=== PATIENT | female | born 1955 | race Caucasian/White ===

== ENCOUNTER 2017-01-04 12:37 | Inpatient (IN) | payer MEDICARE ==
[~2017-01-04] VITALS: Ht 162.6 cm; Wt 46.7 kg
--- NOTE | 2017-01-04 12:52 | NUR ---
DR MORGAN AT THE BEDSIDE FOR EVAL AND EXAM.
[2017-01-04] MEDS ORDERED: TIZA4TAB4 PO (12:53)
[2017-01-04] MEDS ORDERED: CELE200C PO (12:53)
[2017-01-04] MEDS ORDERED: LISI2.5T2 PO (12:53)
[2017-01-04] MEDS ORDERED: HYDR-3326 PO (12:53)
[2017-01-04] MEDS ORDERED: LEVO100T PO (12:53)
[2017-01-04] MEDS ORDERED: ONDANSETRON 4 MG/2 ML VIAL IV ONE (13:15)
[2017-01-04] MEDS ORDERED: IV NORMAL SALINE 1000 ML BAG IV ONE (13:15)
[2017-01-04] MEDS ORDERED: ONDANSETRON 4 MG/2 ML VIAL ONE (13:22)
[2017-01-04] MEDS ORDERED: IV NORMAL SALINE 0 ML IV ONE (13:33)
[2017-01-04] MEDS ORDERED: NORMAL SALINE FLUSH 10 ML DISP.SYRIN ONE (13:33)
[2017-01-04] MEDS ORDERED: IOHEXOL 300MG/ML 100 ML INFUS..BTL ONE (13:33)
[2017-01-04 14:34] LABS: CALCIUM 9.7 mg/dL (8.5-10.1); CREATININE 1.3 mg/dL (0.6-1.3); POTASSIUM 4.7 mmol/L (3.5-5.1)
[2017-01-04 14:38] LABS: BASOPHILS % (AUTO) 0.4 % (0.0-2.0); EOSINOPHILS # (AUTO) 0.1 K/uL (0.0-0.7); HEMATOCRIT 40.4 % (37-47); HEMOGLOBIN 13.6 G/DL (12.0-16.0); LYMPHOCYTES # (AUTO) 1.3 K/UL (0.8-4.8); LYMPHOCYTES % (AUTO) 18.4 % (20.5-51.5); MEAN CORPUSCULAR HEMOGLOBIN 31.3 UUG (27.0-31.0); MEAN CORPUSCULAR HGB CONC 34 g/dL (32.0-37.0); MEAN CORPUSCULAR VOLUME 93.3 FL (81.0-99.0); MONOCYTES # (AUTO) 0.3 K/UL (0.1-1.30); MONOCYTES % (AUTO) 4.6 % (0.0-11.0); NEUTROPHILS # (AUTO) 5.4 K/UL (1.8-8.9); NEUTROPHILS % (AUTO) 75.6 % (38.5-71.5); PLATELET COUNT (AUTO) 145 K/UL (150-450); RED BLOOD CELL COUNT(AUTO) 4.34 MIL/UL (4.2-5.4); RED CELL DISTRIBUTION WIDTH 12.3 % (11.5-14.5); WHITE BLOOD COUNT (AUTO) 7.1 K/UL (4.0-11.2)
[2017-01-04 14:41] LABS: ALBUMIN 4.5 g/dL (3.4-5.0); BILIRUBIN,DIRECT 0.1 mg/dL (0.0-0.2); BILIRUBIN,TOTAL 0.6 mg/dL (0.2-1.0); TOTAL PROTEIN, SERUM 7.5 g/dL (6.4-8.2)
--- NOTE | 2017-01-04 15:16 | NUR ---
PT BACK FROM CT. DENIES NAUSEA.
[2017-01-04] MEDS ORDERED: MORPHINE SULFATE 2 MG/1 ML DISP.SYRIN IV ONE (15:30)
[2017-01-04] MEDS ORDERED: MORPHINE SULFATE 2 MG/1 ML DISP.SYRIN ONE (15:44)
--- NOTE | 2017-01-04 15:55 | NUR ---
AGUSTÍN CHASE SPOKE TO PATRIZIA(PT'S PMD).
--- NOTE | 2017-01-04 16:20 | NUR ---
PATIENT ARRIVED FROM ER, PATIENT IS A/OX4, NO EVIDENCE OF DISTRESS/DISCOMFORT NOTED. PATIENT NOTED TO BE BRADYCARDIC ON A MONITOR AND IS ASYMPTOMATIC, DR ALANIZ NOTIFIED OF ADMISSION AND REQUESTED ORDERS. CONSULT FROM DR LR REQUESTED, AND NOTIFIED.
[2017-01-04 16:49] VITALS: BP 124/72
[2017-01-04 16:55] VITALS: BP 124/72
[2017-01-04] MEDS ORDERED: ONDANSETRON 4 MG/2 ML VIAL IV PRN (18:30)
[2017-01-04] MEDS ORDERED: MORPHINE SULFATE 2 MG/1 ML DISP.SYRIN IV PRN (18:30)
[2017-01-04] MEDS ORDERED: ACETAMINOPHEN 325 MG TABLET PO PRN (18:30)
[2017-01-04] MEDS ORDERED: ZOLPIDEM 5 MG TABLET PO PRN (18:30)
[2017-01-04] MEDS ORDERED: MAGNESIUM HYDROXIDE 30 ML LIQUID UDC PO PRN (18:30)
--- NOTE | 2017-01-04 18:44 | NUR ---
PATIENT SEEN BY DR LR
--- NOTE | 2017-01-04 18:54 | NUR ---
GAVE REPORT TO BAFFLE MOUNTER, SAFETY CHECK, BED IN LOW POSITION, WHEELS LOCKED, SIDE RAILS UP X2
--- NOTE | 2017-01-04 19:00 | NUR ---
Received report from J LUIS Alvarez
--- NOTE | 2017-01-04 19:30 | NUR ---
Received patient awake, children at bedside. Denies any pain/discomforts at this time. Continue care as planned.
[2017-01-04 20:16] VITALS: BP 116/61
--- NOTE | 2017-01-04 20:42 | NUR ---
Complaint of chest and both arms pain. Medicated as needed and ordered. Will monitor.
[2017-01-04] MEDS ORDERED: DOCUSATE SODIUM 100 MG CAPSULE PO SCH (21:00)
[2017-01-04] MEDS ORDERED: TIZANIDINE HCL 4 MG TABLET PO SCH (21:00)
[2017-01-04] MEDS ORDERED: DOCUSATE SODIUM 250 MG CAPSULE PO SCH (21:00)
[2017-01-05 00:09] VITALS: BP 98/60
--- NOTE | 2017-01-05 01:32 | NUR ---
HR sustaining from 34-40bpm. Patient sleeping. Denies any s/s . VS take 98/62, 38, [address] Argueta made aware with no new order. Continue to monitor.
[2017-01-05 01:37] VITALS: BP 98/62
[2017-01-05 04:00] VITALS: BP 101/63
--- NOTE | 2017-01-05 05:25 | NUR ---
Patient remain SB on the 40's when lying down or sleeping but once she's up HR goes up up to 70's. Slept good. No further complaint presented. Goes to the BR independently. Safety measures and fall precaution maintained. All needs attended and met. Continue to monitor.
--- NOTE | 2017-01-05 06:52 | NUR ---
Report given to J LUIS Stafford
[2017-01-05 06:54] LABS: ALBUMIN 3.4 g/dL (3.4-5.0); BILIRUBIN,TOTAL 0.3 mg/dL (0.2-1.0); CALCIUM 8.9 mg/dL (8.5-10.1); CREATININE 1.1 mg/dL (0.6-1.3); PHOSPHOROUS 3.7 mg/dL (2.5-4.9); TOTAL PROTEIN, SERUM 6.1 g/dL (6.4-8.2)
[2017-01-05 06:59] LABS: BASOPHILS % (AUTO) 0.4 % (0.0-2.0); EOSINOPHILS # (AUTO) 0.2 K/uL (0.0-0.7); HEMATOCRIT 36.9 % (37-47); HEMOGLOBIN 12.4 G/DL (12.0-16.0); LYMPHOCYTES # (AUTO) 1.8 K/UL (0.8-4.8); LYMPHOCYTES % (AUTO) 32.8 % (20.5-51.5); MEAN CORPUSCULAR HEMOGLOBIN 31.6 UUG (27.0-31.0); MEAN CORPUSCULAR HGB CONC 34 g/dL (32.0-37.0); MEAN CORPUSCULAR VOLUME 94.2 FL (81.0-99.0); MONOCYTES # (AUTO) 0.3 K/UL (0.1-1.30); MONOCYTES % (AUTO) 6.3 % (0.0-11.0); NEUTROPHILS # (AUTO) 3.2 K/UL (1.8-8.9); NEUTROPHILS % (AUTO) 56.5 % (38.5-71.5); PLATELET COUNT (AUTO) 141 K/UL (150-450); RED BLOOD CELL COUNT(AUTO) 3.91 MIL/UL (4.2-5.4); RED CELL DISTRIBUTION WIDTH 12.5 % (11.5-14.5); WHITE BLOOD COUNT (AUTO) 5.5 K/UL (4.0-11.2)
[2017-01-05] MEDS ORDERED: LEVOTHYROXINE SODIUM 100 MCG TABLET PO SCH (07:00)
[2017-01-05] MEDS ORDERED: PANTOPRAZOLE SODIUM 40 MG TABLET.DR PO SCH (07:00)
--- NOTE | 2017-01-05 07:20 | NUR ---
RECEIVED PATIENT FROM [employer] COUNTERPERSON, SAFETY CHECK, BED IN LOW POSITION, SIDE RAILS UP X2
[2017-01-05 07:38] VITALS: BP 101/63
[2017-01-05] MEDS ORDERED: CELECOXIB 200 MG CAPSULE PO SCH (09:00)
[2017-01-05] MEDS ORDERED: LISINOPRIL 5 MG TABLET PO SCH (09:00)
[2017-01-05] MEDS ORDERED: PAIN PUMP IV SCH (10:45)
--- NOTE | 2017-01-05 11:00 | NUR ---
CALLED DR LUNA ABOUT LISINOPRIL, HOLD RIGHT NOW, AND CONTINUE TO MONITOR BP
[2017-01-05 11:43] VITALS: BP 113/59
--- NOTE | 2017-01-05 12:47 | NUR ---
SEEN BY DR ESPINO NOTED ELEVATED TROPONIN WITH ORDERS, AWAITING RESULTS OF 2D ECHO
--- NOTE | 2017-01-05 13:45 | NUR ---
DISCHARGE ORDERS RECEIVED BY MD, PATIENT TO FOLLOW UP WITH PROOFSHEET CORRECTOR AND PCP.
--- NOTE | 2017-01-05 14:46 | NUR ---
PATIENT DISCHARGED TO HOME, IN STABLE CONDITION, ALERT,ORIENTED AND AMBULATORY.
== END 2017-01-05 14:40 | disposition home or self-care (01) | DRG 280 ==
LOC: ER 12:37 → DOU 16:13 → TELE-TD 16:40
PROVIDERS: ADMIT Internal Medicine; ATTEND Internal Medicine
DX: R00.1 Bradycardia, unspecified (principal); N17.0 Acute kidney failure with tubular necrosis; I21.4 Non-ST elevation (NSTEMI) myocardial infarction; G11.4 Hereditary spastic paraplegia; M62.82 Rhabdomyolysis; E89.0 Postprocedural hypothyroidism; V43.52XA Car driver injured in collision with other type car in traffic accident, initial encounter; Y92.410 Unspecified street and highway as the place of occurrence of the external cause; I10 Essential (primary) hypertension; E86.0 Dehydration; Z90.710 Acquired absence of both cervix and uterus; K59.00 Constipation, unspecified; D69.6 Thrombocytopenia, unspecified; Z79.899 Other long term (current) drug therapy
CPT/HCPCS: 36415; 70030-TC; 70450; 71010; 72125; 73090; 83735; 84100; 84443; 85025; 85730; 86850; 86900; 86901; 93005; 93307; 97001; J2270; J2405; J3490; J7030; J7050; Q9967